=== PATIENT | female | born 1965 | race Caucasian/White ===

== ENCOUNTER 2017-11-18 17:18 | Outpatient (CLI) | payer OTHER ==
[~2017-11-18 17:18] MED LIST: RELPAX20 MG PO
== END 2017-11-18 17:48 | disposition home or self-care (01) ==
LOC: LAB 17:18
DX: J11.89 Influenza due to unidentified influenza virus with other manifestations (principal)

== ENCOUNTER 2018-06-04 09:59 | Outpatient (CLI) | payer OTHER | END 2018-06-04 10:14 | disposition home or self-care (01) | LOC: NUCLEAR 09:59 | DX: I11.9 Hypertensive heart disease without heart failure (principal) ==

== ENCOUNTER 2018-11-25 16:05 | Outpatient (CLI) | payer OTHER | END 2018-11-25 18:00 | disposition home or self-care (01) | LOC: LAB 16:05 | DX: J11.1 Influenza due to unidentified influenza virus with other respiratory manifestations (principal); J11.89 Influenza due to unidentified influenza virus with other manifestations ==